=== PATIENT | female | born 1990 | race Caucasian/White ===

== ENCOUNTER 2022-05-19 13:55 | Outpatient (CLI) | payer OTHER | END 2022-05-19 13:56 | disposition home or self-care (01) | LOC: CSHLAB 13:55 | PROVIDERS: ATTEND Dentist Oral and Maxillofacial Surgery | DX: Z20.822 Contact with and (suspected) exposure to COVID-19 (principal); K02.9 Dental caries, unspecified; K05.6 Periodontal disease, unspecified | CPT/HCPCS: 87811 ==

== ENCOUNTER 2022-05-24 08:46 | Day surgery (SDC) | payer OTHER ==
[2022-05-19 09:33] VITALS: BMI 25.6
[2022-05-24] MEDS ORDERED: Lidocaine 1% MPF 2 ML VIAL ONE (10:06)
[2022-05-24] MEDS ORDERED: PROPOFOL 20 ML ONE (10:08)
[2022-05-24] MEDS ORDERED: Dexamethasone 4 mg/ml Vial ONE (10:08)
[2022-05-24] MEDS ORDERED: Ondansetron PF 4 MG/2 ML Vial ONE (10:08)
[2022-05-24] MEDS ORDERED: Lidocaine 1% PF 5 ML VIAL ONE (10:08)
[2022-05-24] MEDS ORDERED: Chlorhexidine Gluconate 15 ML UDCUP SSP ONE (10:24)
[2022-05-24] MEDS ORDERED: Lidocaine 1% w/Epinephrine 1:100K 20 ML VIAL ONE (10:24)
[2022-05-24] MEDS ORDERED: Fentanyl 100 MCG/2 ML VIAL ONE (10:43)
[2022-05-24] MEDS ORDERED: Clindamycin/D5W 900 mg/50 ml Premix Bag ONE (10:43)
[2022-05-24] MEDS ORDERED: Succinylcholine 200 MG/10 ml SYRINGE FS ONE (10:43)
[2022-05-24] MEDS ORDERED: Midazolam HCl 2 mg/2 ml Vial ONE (10:59)
[2022-05-24] MEDS ORDERED: Oxymetazoline HCl 0.05% ( 15 ML ) ONE (11:07)
[2022-05-24] MEDS ORDERED: Dexmedetomidine 200 MCG/2 ML VIAL ONE (11:08)
[2022-05-24] MEDS ORDERED: SUGAMMADEX SODIUM 200 MG/2 ML VIAL ONE (11:08)
[2022-05-24] MEDS ORDERED: PHENYLEPHRINE-NS 100 MCG/ML 10 ML SYRINGE ONE (12:00)
[2022-05-24] MEDS ORDERED: ePHEDrine Sulfate 50 MG/10 ML VIAL ONE (12:16)
== END 2022-05-24 13:30 | disposition home or self-care (01) ==
LOC: CSHSDC 08:46
PROVIDERS: ATTEND Dentist Oral and Maxillofacial Surgery
PROC: 0CTX0Z1 Resection of Lower Tooth, Multiple, Open Approach (ICD-10-PCS; principal; 2022-05-24)
PROC: 0CDWXZ1 Extraction of Upper Tooth, Multiple, External Approach (ICD-10-PCS; principal; 2022-05-24)
DX: K01.1 Impacted teeth (principal); K02.9 Dental caries, unspecified; K05.10 Chronic gingivitis, plaque induced; K05.329 Chronic periodontitis, generalized, unspecified severity; F40.00 Agoraphobia, unspecified; Z79.01 Long term (current) use of anticoagulants; Z79.899 Other long term (current) drug therapy; Z88.8 Allergy status to other drugs, medicaments and biological substances; Z94.0 Kidney transplant status; Z20.822 Contact with and (suspected) exposure to COVID-19
CPT/HCPCS: J1100; J2250; J2405; J2704; J3010; J3490